=== PATIENT | female | born 1950 | race Caucasian/White ===

== ENCOUNTER 2022-04-07 11:24 | Inpatient (IN) | payer OTHER, BC ==
[~2022-04-07] VITALS: Ht 162.6 cm; Wt 44.9 kg
--- NOTE | 2022-04-07 11:30 | NUR ---
Patient BIBA to bed 3 at this time.
[2022-04-07 11:34] VITALS: BP_SYST 109; BP_SYST 129; BP_DIAS 100; BP_DIAS 61
--- NOTE | 2022-04-07 11:34 | NUR ---
72 Y/O F BIBA WITH ABNORMAL LABS, ELEVATED WBC AND LFT. PT AAOX1, ALOC SINCE YESTERDAY AFTER HER APPOINTMENT AT 1400. ON 4L NC. 96.9 F TEMPORAL. MILD WEAKNESS. 0/10 PAIN AT THIS TIME. PT DENIES SOB, CP, COUGH, FEVER. PMH: LUNG CX, ACUTE ON CHRONIC RESP FAILURE, GASTRIC ULCER W PERFORATION, ANEMIA, HLD, PLEURAL EFFUCION, GERD, ARTHRITIS, HYDRONEPHROSIS W RENAL AND URETERAL CALCIULOUS OBSTRUCTION, ACUTE KIDNEY FAILURE, CALCULOUS OF URETER, MALIGNANT NEOPLASM OF CERVIX AND UTERUS NKDA MEDS: ATORVASTATIN, BUDESONIDE, CETIRIZINE HCL, ALBUTEROL, MEGESTROL ACETATE, PERCOCET, PROTONIX Addendum: 04/07/22 at 1212 by MALI 72 Y/O F BIBA WITH ABNORMAL LABS, ELEVATED WBC AND LFT. PT AAOX1, ALOC SINCE YESTERDAY AFTER HER APPOINTMENT AT 1400. ABD INCISION NOTED. DRESSING CLEAN DRY INTACT. BOWEL SOUNDS ACTIVE. INCONTINENT OF BOWEL AND BLADDER. ON 4L NC. 96.9 F TEMPORAL. MILD WEAKNESS. 0/10 PAIN AT THIS TIME. PT DENIES SOB, CP, COUGH, FEVER. PMH: LUNG CX, ACUTE ON CHRONIC RESP FAILURE, GASTRIC ULCER W PERFORATION, ANEMIA, HLD, PLEURAL EFFUCION, GERD, ARTHRITIS, HYDRONEPHROSIS W RENAL AND URETERAL CALCIULOUS OBSTRUCTION, ACUTE KIDNEY FAILURE, CALCULOUS OF URETER, MALIGNANT NEOPLASM OF CERVIX AND UTERUS NKDA MEDS: ATORVASTATIN, BUDESONIDE, CETIRIZINE HCL, ALBUTEROL, MEGESTROL ACETATE, PERCOCET, PROTONIX
--- NOTE | 2022-04-07 11:34 | NUR ---
SEEN AND EXAMINED BY WARNER
[2022-04-07] MEDS ORDERED: NACL 0.9% 1,000 ML IV SCH (11:35)
--- NOTE | 2022-04-07 12:10 | NUR ---
22G IV TO LAC. 2 ATTEMPT. LABS DRAWN. PT TOLERATED WELL. WILL CONTINUE TO CLOSELY MONITOR.
[2022-04-07 12:13] LABS: BASOPHILS # (AUTO) 0.1 K/uL (0.00-0.22); BASOPHILS % (AUTO) 0.4 % (0.0-2.0); EOSINOPHILS # (AUTO) 0.1 K/uL (0-0.4); EOSINOPHILS % (AUTO) 0.6 % (0.0-4.0); HEMATOCRIT 37.2 % (36-48); LYMPHOCYTES # (AUTO) 1.2 K/uL (2.5-16.5); LYMPHOCYTES % (AUTO) 5.3 % (20.5-51.1); MEAN CORPUSCULAR HEMOGLOBIN 27 pg (27-31); MEAN CORPUSCULAR HGB CONC 32 g/dL (33-37); MEAN CORPUSCULAR VOLUME 83.8 fL (80-94); MONOCYTES # (AUTO) 1.2 K/uL (0.8-1.0); MONOCYTES % (AUTO) 5.6 % (1.7-9.3); NEUTROPHILS # (AUTO) 19.2 K/uL (1.8-7.7); NEUTROPHILS % (AUTO) 88.1 % (42.2-75.2); PLATELET COUNT (AUTO) 151 K/uL (140-450); RED BLOOD CELL COUNT(AUTO) 4.44 MIL/uL (4.20-5.40); WHITE BLOOD COUNT (AUTO) 21.8 K/uL (4.8-10.8)
--- NOTE | 2022-04-07 12:17 | NUR ---
US AT BEDSIDE
[2022-04-07] MEDS ORDERED: NACL 0.9% 1,000 ML IV ONE (13:00)
[2022-04-07] MEDS ORDERED: VANCOMYCIN 1,000 MG in DEXTROSE 5% 250 ML IV ONE (13:00)
[2022-04-07 13:05] LABS: ALBUMIN 2.4 g/dL (3.4-5.0); ANION GAP 16.3 (8-16); ASPARTATE AMINOTRANSFERASE 26 U/L (15-37); CARBON DIOXIDE 23.5 mmol/L (21-32); CHLORIDE 111 mmol/L (98-107); GLUCOSE 125 mg/dL (74-106); LIPASE 51 U/L (73-393); SODIUM SERUM 148 mmol/L (136-145); TOTAL BILIRUBIN 0.5 mg/dL (0.0-1.0)
--- NOTE | 2022-04-07 13:07 | NUR ---
PT TAKEN TO CT
[2022-04-07 13:11] LABS: POTASSIUM 2.8 mmol/L (3.5-5.1)
[2022-04-07 13:12] LABS: CREATININE 4.1 mg/dL (0.6-1.3); UREA NITROGEN, BLOOD 89 mg/dL (7-18)
[2022-04-07] MEDS ORDERED: VANCOMYCIN 1,000 MG VIAL ONE (13:25)
[2022-04-07] MEDS ORDERED: cefTRIAXone 1,000 MG VIAL ONE (13:25)
[2022-04-07] MEDS ORDERED: KCL 20 MEQ/WATER INJ PREMIX 200 ML IV ONE (13:50)
[2022-04-07] MEDS ORDERED: ACETAMINOPHEN 325 MG TAB PO PRN (15:10)
[2022-04-07] MEDS ORDERED: ONDANSETRON 4 MG/2 ML VIAL IM/IVP PRN (15:10)
[2022-04-07] MEDS ORDERED: LORazepam 1 MG TAB PO PRN (15:10)
[2022-04-07] MEDS: NACL 0.9% 1,000 ML IV SCH ×2 (15:10→23:30)
[2022-04-07] MEDS ORDERED: DOCUSATE SODIUM 100 MG GELCAP PO PRN (15:10)
[2022-04-07] MEDS ORDERED: HYDROcodone/APAP 5/325 MG 1 TAB TAB PO PRN (15:10)
[2022-04-07] MEDS ORDERED: ZOLPIDEM 5 MG TAB PO PRN (15:10)
[2022-04-07] MEDS ORDERED: MAG SULF 2000 MG/WATER PREMIX 50 ML IV PRN (15:15)
[2022-04-07] MEDS ORDERED: POTASSIUM CHLORIDE 10 MEQ TABER PO PRN (15:15)
[2022-04-07 15:53] LABS: BILIRUBIN,URINE 2+ (NEGATIVE); BLOOD, URINE 2+ (NEGATIVE); COLOR,URINE YELLOW (YELLOW); LEUKOCYTE ESTERASE ,URINE 2+ (NEGATIVE); NITRITE, URINE NEGATIVE (NEGATIVE); UGLUCOSE NEGATIVE (NEGATIVE)
[2022-04-07 15:59] LABS: APPEARANCE,URINE HAZY (CLEAR)
[2022-04-07 16:03] LABS: RBC,URINE 11-20 (MOD) /HPF (0-5); WBC,URINE 80-100 /HPF (0-5)
[2022-04-07 16:05] LABS: MAGNESIUM 1.6 mg/dL (1.8-2.4); PHOSPHORUS 4.2 mg/dL (2.5-4.9)
[2022-04-07 16:07] LABS: PROTHROMBIN TIME 14.9 secs (10.8-13.4)
[2022-04-07] MEDS ORDERED: CETI1SYR27 PO (16:28)
[2022-04-07] MEDS ORDERED: ACET-2619 PO (16:28)
[2022-04-07] MEDS ORDERED: MEGE40SU4 PO (16:28)
[2022-04-07] MEDS ORDERED: PUL.5N NEB (16:28)
[2022-04-07] MEDS ORDERED: ATOR20TA PO (16:28)
[2022-04-07] MEDS ORDERED: MAGN400S60 PO (16:28)
[2022-04-07] MEDS ORDERED: PANT40EC PO ×2 (16:28)
[2022-04-07] MEDS ORDERED: FLOR250 PO (16:28)
[2022-04-07] MEDS ORDERED: ACET-5636 PO (16:28)
[2022-04-07] MEDS ORDERED: fentaNYL citrate 0.05 MG/ML VIAL ONE (16:36)
[2022-04-07] MEDS ORDERED: MIDAZOLAM 2 MG/2 ML VIAL ONE (16:36)
[2022-04-07] MEDS ORDERED: LIDOCAINE 1% 500 MG/50 ML VIAL ONE (17:02)
--- NOTE | 2022-04-07 17:28 | NUR ---
PT TAKEN BY IR TEAM. TRANSFER OF CARE AT THIS TIME.
--- NOTE | 2022-04-07 17:28 | NUR ---
Patient will be admitted to care of ROBIN. Admited to TELE. Will go to [facility]. Belongings list completed. Report to ZOIE BARRIOS.
--- NOTE | 2022-04-07 17:43 | NUR ---
RECEIVED REPORT FROM ER NURSE EKTA FOR CONTINUITY OF CARE. PT IS IN THE OR, NOT ON UNIT. WILL WAIT FOR PT TO ARRIVE.
--- NOTE | 2022-04-07 19:17 | NUR ---
ENDORSED REPORT TO HAND CUTTER APPRENTICE NURSE FOR CONTINUITY OF CARE. PT STILL IN OR, NOT ON UNIT.
[2022-04-07 20:23] LABS: BARBITURATE, URINE NEGATIVE ng/ml (NEG <=200); BENZODIAZEPINE, URINE NEGATIVE ng/mL (NEG <=200); CANNABINOID, URINE NEGATIVE ng/mL (NEG <=50); COCAINE, URINE NEGATIVE ng/mL (NEG <=300); OPIATE, URINE NEGATIVE ng/mL (NEG <=2000); PHENCYCLIDINE SCREEN,URINE NEGATIVE ng/mL (NEG <=25)
[2022-04-07 20:45] VITALS: BP 161/90
--- NOTE | 2022-04-07 20:45 | NUR ---
RECEIVED PT FROM OR NURSE.PT TRANSPORTED FROM OR VIA GURNEY.PT ASLEEP, BREATHING EQUAL AND UNLABORED. ON 4L O2 VIA NC. NEPHROSTOMY TUBE PLACEMENT WAS UNSUCCESSFUL. PT HAS ABDOMINAL SURGICAL WOUND S/P REPAIR GASTRIC ULCER THAT WAS DONE AT [facility] ON 03/03/22. IV ON R FA G 24, INFUSING WELL.PT IS NPO EXCEPT MEDS. PT ST ON TELE. MRSA SWAB DONE. FALL PRECAUTION IN PLACE. WILL CONTINUE TO MONITOR.
--- NOTE | 2022-04-07 22:30 | NUR ---
MESSAGED DR. KELLY FOR PT'S DIET. ORDERED PT TO BE NPO AFTER MIDNIGHT.
[2022-04-08] VITALS: BP 128/71
[2022-04-08] MEDS: MORPHINE SULFATE 2 MG/ML SYR IVP PRN ×2 (00:15→10:13)
--- NOTE | 2022-04-08 00:15 | NUR ---
PT RESTLESS AND MOANING. FLACC SCORE 7. PRN MORPHINE GIVEN
--- NOTE | 2022-04-08 02:02 | NUR ---
PT ASLEEP. BREATHING EQUAL AND UNLABORED. PT ON O2 4L VIA NC. O2 SAT AT 94%. ALL PRECAUTIONS IN PLACE. WILL CONTINUE TO MONITOR.
[2022-04-08 04:00] VITALS: BP 95/59
[2022-04-08] MEDS: NACL 0.9% 1,000 ML IV SCH (05:10)
[2022-04-08 05:37] LABS: BASOPHILS # (AUTO) 0.1 K/uL (0.00-0.22); BASOPHILS % (AUTO) 0.3 % (0.0-2.0); EOSINOPHILS # (AUTO) 0.5 K/uL (0-0.4); EOSINOPHILS % (AUTO) 2.6 % (0.0-4.0); HEMATOCRIT 27.8 % (36-48); HEMOGLOBIN 9.2 g/dL (12.0-16.0); LYMPHOCYTES # (AUTO) 1.3 K/uL (2.5-16.5); LYMPHOCYTES % (AUTO) 6.6 % (20.5-51.1); MEAN CORPUSCULAR HEMOGLOBIN 28 pg (27-31); MEAN CORPUSCULAR HGB CONC 33 g/dL (33-37); MEAN CORPUSCULAR VOLUME 83.9 fL (80-94); MONOCYTES # (AUTO) 1.3 K/uL (0.8-1.0); MONOCYTES % (AUTO) 6.7 % (1.7-9.3); NEUTROPHILS # (AUTO) 16.2 K/uL (1.8-7.7); NEUTROPHILS % (AUTO) 83.8 % (42.2-75.2); PLATELET COUNT (AUTO) 131 K/uL (140-450); RED BLOOD CELL COUNT(AUTO) 3.32 MIL/uL (4.20-5.40); RED CELL DISTRIBUTION WIDTH 19.5 % (11.6-13.7); WHITE BLOOD COUNT (AUTO) 19.3 K/uL (4.8-10.8)
[2022-04-08 06:29] LABS: ANION GAP 17.3 (8-16); CARBON DIOXIDE 17.9 mmol/L (21-32); CHLORIDE 119 mmol/L (98-107); CREATININE 3.7 mg/dL (0.6-1.3); GLUCOSE 109 mg/dL (74-106); MAGNESIUM 1.5 mg/dL (1.8-2.4); PHOSPHORUS 4.1 mg/dL (2.5-4.9); POTASSIUM 3.2 mmol/L (3.5-5.1); SODIUM SERUM 151 mmol/L (136-145)
[2022-04-08 06:40] LABS: UREA NITROGEN, BLOOD 84 mg/dL (7-18)
--- NOTE | 2022-04-08 07:30 | NUR ---
REPORT GIVEN FROM FLEET DRIVER, PT IS CONFUSED, ORIENT AND ALERT X1, NON VERBAL, ON 4L OXYGEN VIA NC, NPO AFTER MIDNIGHT, NOT ACTE DISTRESS NOTED, ALL SAFETY MEASURE IN PLACE, CALL LIGHT WITHIN REACH, WILL CONTINUE TO MONITOR.
[2022-04-08 08:00] VITALS: BP 158/65
--- NOTE | 2022-04-08 08:20 | NUR ---
Nephrostomy placement was attempted, unsuccessful, pending transfer, dressing DCI.
--- NOTE | 2022-04-08 08:48 | NUR ---
PATIENT HAS BEEN SCREENED AND CATEGORIZED HIGH NUTRITION RISK. PATIENT WILL BE SEEN WITHIN 1-2 DAYS OF ADMISSION. / JACQUELINE MISTRY RD
--- NOTE | 2022-04-08 09:00 | NUR ---
MEDICATION HEPARIN NOT GIVEN DUE TO PT HAS PROCEDURE TODAY
--- NOTE | 2022-04-08 10:13 | NUR ---
PT IN NON VERBAL, BUT CRYING AND MOANING, IRRITABLE, KICKING, PAIN MEDICATION GIVEN THROUGH IV PUSH MD ORDERED.
[2022-04-08] MEDS ORDERED: VANCOMYCIN PER PHARMACY MC PRN (11:30)
[2022-04-08] MEDS ORDERED: NACL 0.45% 1,000 ML IV SCH (11:40)
[2022-04-08 12:00] VITALS: BP 111/59
--- NOTE | 2022-04-08 12:26 | NUR ---
DC PLANNING: ORDER FOR [facility] FOR NEPHROSTOMY TUBE PLACEMENT, YONY SPOKE WITH OLIVIER AT [facility], ORDER AND PACKET FAXED TO HIM, ALSO FAXED TO [facility] PER ATTENDING MD REQUEST. CM WILL FOLLOW. Addendum: 04/08/22 at 1348 by Mirian Claros CM DC PLANNING: [facility] CAN DO NEPHROSTOMY PLACEMENT MONDAY, OLIVIER, MANUFACTURING CONTROLLER WORKING ON ARRANGING THIS. YONY SPOKE WITH THE MANUFACTURING CONTROLLER AT [facility], NO BEDS AT THIS TIME, ASKS THAT DR KELLY CALL TO ACCEPT THE PATIENT, DR KELLY AWARE. ALSO FAXED TO [facility], CHARLES WILL REVIEW PAPERWORK, ASKS THAT A RETURN AGREEMENT BE SIGNED IF THEY AGREE TO ACCEPT. CM WILL FOLLOW. Addendum: 04/08/22 at 1447 by Mirian Claros CM DC PLANNING: YONY SPOKE WITH IRIS [place] [facility] THEY ARE AT [place] BUT PATIENT HAS BEEN ACCEPTED. SHE WILL BE ADMITTED OBSERVATION AND THEN RETURN TO [facility]. AMBULANCE NEEDS TO BE ARRANGED WITH [facility] WHEN SHE'S ACCEPTED, CALL [phone]. NO CALL BACK FROM [facility], YONY WILL FOLLOW. Addendum: 04/08/22 at 1640 by Mirian Claros CM DC PLANNING: PATIENT DECLINED BY [facility] BY THEIR MD. ENDORSED TO THE MANUFACTURING CONTROLLER TO FOLLOW UP WITH [facility] REGARDING SCHEDULING PATIENT THIS MONDAY. NO WORD YET FROM [facility] REGARDING ACCEPTANCE CM WILL FOLLOW. Addendum: 04/08/22 at 1704 by Mirian Claros CM DC PLANNING: PATIENT ACCEPTED TO [facility], ROOM [address]B, COMMODITY ANALYST BY [facility] AT 1900 BLS LEVEL. NUMBER TO CALL REPORT IS [phone]. YONY SPOKE WITH THE PATIENTS CARLA BY PHONE TO LET HIM KNOW ABOUT THE TRANSFER. ALSO ENDORSED TO THE PATIENTS NURSE SIMEON. YONY WILL FOLLOW.
--- NOTE | 2022-04-08 12:28 | NUR ---
ATTEMPTED TO SEE PATIENT FOR PHYSICAL THERAPY EVALUATION HOWEVER PATIENT DOES NOT FOLLOW COMMANDS, COMBATIVE, AND IN HIGH LEVELS OF PAIN PER RN. TO HOLD AT THIS TIME. WILL FOLLOW UP IF APPROPRIATE TOMORROW; RN AGREEABLE.
--- NOTE | 2022-04-08 12:49 | NUR ---
PT. WITH LOW PAULO SCALE AT HIGH RISK, CONTINUE TO FOLLOW PRESSURE INJURY PREVENTION INTERVENTIONS. -POSITIONING: TURN AND REPOSITION PATIENT Q 2H OR SOONER USE PILLOWS TO KEEP BONY PROMINENCES FROM DIRECT CONTACT WITH SURFACES USE REPOSITIONING WEDGES TO PROVIDE 30-DEGREE ANGLE FOR SIDE LYING POSITIONS OFFLOADING OR FOAM DRESSING TO ALL TUBING TO PREVENT MEDICAL DEVICES RELATED PRESSURE INJURY -RE-EVALUATING AND MANAGING INCONTINENCE MONITOR SKIN CONDITION DURING POSITION CHANGE DO NOT MASSAGE REDNESS, BONY PROMINENCES FREQUENT MARCIAL-CARE AND PROVIDE BARRIER CREAMS PRN IF SOILING MOISTURE CONTROL BY OFFER BED COX/URINAL /ABSORBENT PAD TO WICK AND HOLD MOISTURE KEEP SKIN DRY AND PROTECT FROM FRICTION -MANAGE FRICTION/SHEAR/MOBILITY KEEP HOB AT THE LOWEST LEVEL OF ELEVATION NO MORE THAN 30 DEGREE UNLESS OTHERWISE CONTRAINDICATED USE LIFT SHEET OR TRANSFER DEVICE TO MOVE PATIENT AND PREVENT LATERAL SHEER. PROTECT HEELS, ELBOWS BONY PROMINENCES WITH SKIN BERRIES OR FOAM DRESSING IF EXPOSED TO FRICTION OFFLOAD BILATERAL HEELS BY PLACING PILLOWS UNDER CALVES AT ALL TIMES, UNLESS OTHERWISE CONTRAINDICATED -PRESSURE REDISTRIBUTION SURFACE THERAPY SHAZIA ISOFLEX MATTRESS -NUTRITION: PLEASE FOLLOW RD RECOMMENDATIONS AND OFFER NUTRITION SUPPLEMENTS IF ORDERED. PLEASE CONTACT WOUND CARE NURSE FOR ANY QUESTION AND CHANGE OF WOUND CONDITION.
[2022-04-08] MEDS ORDERED: POTASSIUM CHLORIDE 20 MEQ, LIDOCAINE MPF 1% 25 MG in NACL 0.9% 250 ML IV SCH (13:30)
--- NOTE | 2022-04-08 14:42 | NUR ---
04/08/22 RD INITIAL ASSESSMENT COMPLETED PLEASE REFER TO NUTRITION ASSESSMENT UNDER CARE ACTIVITY FOR ESTIMATED NUTRITIONAL NEEDS. 1. WHEN/IF MEDICALLY APPROPRIATE, RECOMMEND SWALLOW EVALUATION BEFORE ADVANCING DIET -RECOMMEND STARTING WITH CLEAR LIQUID DIET 2. ADD ORAL SUPPLEMENTS FOR NUTRITION SUPPORT 3. RD TO FOLLOW-UP 2-3 DAYS, HIGH RISK REVIEWED BY JACQUELINE MISTRY RD
[2022-04-08 16:00] VITALS: BP 100/44
--- NOTE | 2022-04-08 17:35 | NUR ---
REPORT GIVEN TO ANIBAL IN [facility], STATED UNDERSTANDING, WILL ENDORSE TO NURSE THAT IS GETTING THE PT.
--- NOTE | 2022-04-08 19:31 | NUR ---
ENDORSED PT TO EXHIBITION SPECIALIST NURSE FOR CONTINUOUS OF CARE.
--- NOTE | 2022-04-08 19:32 | NUR ---
RECEIVED REPORT FROM SIMEON GOEL RN FOR CONTINUITY OF CARE.PT RESTING ON R SIDE O2 4L /NC ON . RR EVEN AND UNLABORED WITH EQUAL CHEST RISE..IVF 1/2 NS INFUSING @70CC/HR. ALL SAFETY MEASURES IN PLACE. WILL CONTINUE TO MONITOR.
--- NOTE | 2022-04-08 19:43 | NUR ---
[facility] HERE TO TRANSPORT PT TO [facility]. PT LEFT MST UNIT VIA GURNEY WITH 2 ATTENDANTS. PT STABLE.
[2022-04-08] MEDS ORDERED: PANTOPRAZOLE 40 MG TABEC PO SCH (21:00)
[2022-04-09] MEDS ORDERED: ATORVASTATIN 20 MG TAB PO SCH (09:00)
== END 2022-04-08 19:45 | disposition short-term general hospital (02) | DRG 871 ==
LOC: MED 11:24 → MTU 15:06
PROC: 0T933ZZ Drainage of Right Kidney Pelvis, Percutaneous Approach (ICD-10-PCS; principal; 2022-04-07)
DX: A41.9 Sepsis, unspecified organism (principal); N17.0 Acute kidney failure with tubular necrosis; E43 Unspecified severe protein-calorie malnutrition; N20.2 Calculus of kidney with calculus of ureter; N13.6 Pyonephrosis; C34.90 Malignant neoplasm of unspecified part of unspecified bronchus or lung; E87.0 Hyperosmolality and hypernatremia; Z20.822 Contact with and (suspected) exposure to COVID-19; D64.9 Anemia, unspecified; E78.5 Hyperlipidemia, unspecified; M85.80 Other specified disorders of bone density and structure, unspecified site; N31.2 Flaccid neuropathic bladder, not elsewhere classified; N18.9 Chronic kidney disease, unspecified; J43.2 Centrilobular emphysema; K21.9 Gastro-esophageal reflux disease without esophagitis; Z87.11 Personal history of peptic ulcer disease; Z85.118 Personal history of other malignant neoplasm of bronchus and lung; Z90.710 Acquired absence of both cervix and uterus
CPT/HCPCS: 36415; 50432; 70450; 76705; 76770; 80048; 80053; 80202; 80305; 81001; 82140; 83605; 83690; 83735; 83880; 84100; 84134; 85025; 85610; 85730; 87040; 87081; 87086; 96365; 96367; 96368; 99291; J0696; J1644; J2001; J2250; J2270; J3010; J3370; J3475; J3480; J7030; Q0092